=== PATIENT | female | born 1945 | race Two or more races ===

== ENCOUNTER 2018-06-22 15:11 | Emergency (ER) | payer MEDICARE, OTHER ==
[~2018-06-22] VITALS: Ht 147.3 cm; Wt 66.2 kg
[2018-06-22 15:11] VITALS: BP 155/116
[~2018-06-22 15:11] MED LIST: ASPI-807 PO; ATOR40TA PO; CALC600T12 PO; FOLI1TAB16 PO; LOSA50TA21 PO; MULT-585 PO; [UNRECOGNIZED DRUG - CODE] PO
[2018-06-22] MEDS ORDERED: IBUPROFEN 400 MG TABLET PO ONE (16:00)
[2018-06-22] MEDS ORDERED: IBUPROFEN 400 MG TABLET ONE (16:23)
== END 2018-06-22 16:34 | disposition home or self-care (01) ==
LOC: ER 15:12
DX: S70.11XA Contusion of right thigh, initial encounter (principal); I10 Essential (primary) hypertension; Z79.899 Other long term (current) drug therapy; Z79.82 Long term (current) use of aspirin; Z98.890 Other specified postprocedural states; X58.XXXA Exposure to other specified factors, initial encounter; Y93.89 Activity, other specified; Y92.89 Other specified places as the place of occurrence of the external cause; Y99.8 Other external cause status
CPT/HCPCS: 93971; 99284; A4606; Z7610